=== PATIENT | female | born 1985 | race Caucasian/White ===

== ENCOUNTER 2016-12-09 13:38 | Observation (INO) | payer OTHER ==
[2016-12-09] MEDS ORDERED: MORPHINE SULFATE 4 MG INJ IV ONE (14:01)
[2016-12-09] MEDS ORDERED: Phenergan 25 MG INJ IV ONE (14:01)
[2016-12-09] MEDS ORDERED: Sodium Chloride 0.9% 1000 ML 1,000 ML IV STA (14:01)
--- NOTE | 2016-12-09 14:01 | ERPHSYRPT ---
- History of Present Illness Time Seen by Provider: 12/09/16 13:57 Historian: patient, family Exam Limitations: no limitations Patient Subjective Stated Complaint: co abd pain to right side that radiates across abd with nausea and vomiting today x1, started after breakfast today, has has us and blood work for pain Triage Nursing Assessment: pt alert, resp easy, walked in, abd soft with bs, tender to palpate Physician History: The patient is a 31-year-old female with her complaining of a sudden onset of severe right upper quadrant abdominal pain with radiation across her abdomen. The pain began about one half hour after eating eggs and toast with butter. She has had intermittent pain like this for the past 9 years but in the past several months it has become constant with a flare up from time to time. Today is the worst pain that she has experienced. She also has vomited. The patient had an ultrasound of her gallbladder on November 07 of this year that was found to be negative. Her past medical history is significant for a C- section. Timing/Duration: today, hour(s) (3) Activities at Onset: none Quality: sharpness, stabbing Abdominal Pain Onset Location: RUQ Pain Radiation: LUQ Severity of Pain-Max: severe Severity of Pain-Current: severe Modifying Factors: Improves With: vomiting Associated Symptoms: denies symptoms Previous symptoms: same symptoms as today Allergies/Adverse Reactions: No Known Drug Allergies Allergy (Verified 12/09/16 13:54) Home Medications: No Reportable Medications [No Reported Medications] 10/28/15 [History] Hx Tetanus, Diphtheria Vaccination/Date Given: Yes (2015) Hx Influenza Vaccination/Date Given: Yes Hx Pneumococcal Vaccination/Date Given: No Immunizations Up to Date: Yes - Review of Systems Constitutional: No Fever, No Chills Eyes: No Symptoms Ears, Nose, & Throat: No Symptoms Respiratory: No Cough, No Dyspnea Cardiac: No Chest Pain, No Edema, No Syncope Abdominal/Gastrointestinal: Abdominal Pain, Nausea, Vomiting, No Diarrhea Genitourinary Symptoms: No Dysuria Musculoskeletal: No Back Pain, No Neck Pain Skin: No Rash Neurological: No Dizziness, No Focal Weakness, No Sensory Changes Psychological: No Symptoms Endocrine: No Symptoms Hematologic/Lymphatic: No Symptoms Immunological/Allergic: No Symptoms All Other Systems: Reviewed and Negative - Past Medical History Pertinent Past Medical History: No - Past Surgical History Past Surgical History: Yes Female Surgical History: Section - Social History Smoking Status: Never smoker Exposure to second hand smoke: No Drug Use: none Patient Lives Alone: No - Female History Hx Last Menstrual Period: 12/04/16 - Nursing Vital Signs Nursing Vital Signs: Initial Vital Signs Temperature 97.9 F Temperature Source Oral Pulse Rate 79 Respiratory Rate 16 Blood Pressure [Right Arm] 109/58 Pain Intensity 1 - Physical Exam General Appearance: moderate distress Eye Exam: PERRL/EOMI, eyes nml inspection Ears, Nose, Throat Exam: normal ENT inspection, pharynx normal, moist mucous membranes Neck Exam: normal inspection, non-tender, supple, full range of motion Respiratory Exam: normal breath sounds, lungs clear, No respiratory distress Cardiovascular Exam: regular rate/rhythm, normal heart sounds Gastrointestinal/Abdomen Exam: tenderness Pelvic Exam: not done Rectal Exam: not done Back Exam: normal inspection, normal range of motion, No CVA tenderness, No vertebral tenderness Extremity Exam: normal inspection, normal range of motion, pelvis stable Neurologic Exam: alert, oriented x 3, cooperative, normal mood/affect, nml cerebellar function, sensation nml, No motor deficits Skin Exam: normal color, warm, dry SpO2 Interpretation: normal SpO2: 99 Oxygen Delivery: Room Air - CT Exams Abdomen/Pelvis CT Interpretation: Tele-radiologist Report, Other (No acute process. Possible subtle milk of calcium bile in the GB. Per Dr Gaines.) Ordered Tests: Active Orders 24 hr Category Date Time Status IV Insertion STAT Care 12/09/16 14:01 Active ABDOMEN AND PELVIS W/0 CONTRAS [CT] Stat Exams 12/09/16 15:10 Completed CBC W DIFF Stat Lab 12/09/16 14:00 Completed CMP Stat Lab 12/09/16 14:00 Completed HCG QUALITATIVE,SERUM Stat Lab 12/09/16 14:00 Completed LIPASE Stat Lab 12/09/16 14:00 Completed Lactic Acid Stat Lab 12/09/16 14:37 Completed UA W/RFX UR CULTURE Stat Lab 12/09/16 14:02 Completed Medication Summary Discontinued Medications Generic Name Dose Route Start Last Admin Trade Name Freq PRN Reason Stop Dose Admin Sodium Chloride 1,000 mls @ 999 mls/hr 12/09/16 14:01 12/09/16 14:11 Sodium Chloride 0.9% 1000 Ml IV 12/09/16 15:01 999 mls/hr .Q1H1M STA Administration Sodium Chloride Confirm 12/09/16 14:05 Sodium Chloride 0.9% 1000 Ml Administered 12/09/16 14:06 Dose 1,000 mls @ ud .ROUTE .STK-MED ONE Morphine Sulfate 4 mg 12/09/16 14:01 12/09/16 14:09 Morphine Sulfate 4 Mg Inj IV 12/09/16 14:02 4 mg STAT ONE Administration Morphine Sulfate Confirm 12/09/16 14:05 Morphine Sulfate 4 Mg Inj Administered 12/09/16 14:06 Dose 4 mg .ROUTE .STK-MED ONE Promethazine HCl 12.5 mg 12/09/16 14:01 12/09/16 14:09 Phenergan 25 Mg Inj IV 12/09/16 14:02 25 mg STAT ONE Administration Promethazine HCl Confirm 12/09/16 14:05 Phenergan 25 Mg Inj Administered 12/09/16 14:06 Dose 25 mg .ROUTE .STK-MED ONE Lab/Rad Data: Laboratory Result Diagrams 12/09/16 14:00 12/09/16 14:00 Laboratory Results 12/09/16 12/09/16 12/09/16 Range/Units 14:37 14:02 14:00 WBC (4.0-10.5) K/mm3 RBC (4.1-5.4) M/mm3 Hgb (12.0-16.0) gm/dl Hct (35-47) % MCV (78-100) fl MCH (26-32) pg MCHC (32-36) g/dl RDW (11.5-14.0) % Plt Count (150-450) K/mm3 MPV (6-9.5) fl Gran % (36.0-66.0) % Lymphocytes % (24.0-44.0) % Monocytes % (0.0-12.0) % Eosinophils % (0.00-5.0) % Basophils % (0.0-0.4) % Basophils # (0-0.4) Sodium (136-145) mEq/L Potassium (3.5-5.1) mEq/L Chloride (98-107) mEq/L Carbon Dioxide (21-32) mEq/L Anion Gap (5-15) MEQ/L BUN (9-20) mg/dL Creatinine (0.55-1.30) mg/dl Estimated GFR ML/MIN Glucose (70-110) MG/DL Lactic Acid 1.6 (0.4-2.0) Calcium (8.5-10.1) mg/dL Total Bilirubin (0.2-1.0) mg/dL AST (15-37) U/L ALT (12-78) U/L Alkaline Phosphatase (46-116) U/L Serum Total Protein (6.4-8.2) gm/dL Albumin (3.4-5.0) g/dL Lipase (73-393) U/L Serum , Qual NEGATIVE (Negative) Ur Collection Type CLEAN CATCH Urine Color YELLOW (YELLOW) Urine Appearance CLEAR (CLEAR) Urine pH 7.0 (5-6) Ur Specific [place] 1.005 (1.005-1.025) Urine Protein NEGATIVE (Negative) Urine Ketones NEGATIVE (NEGATIVE) Urine Blood NEGATIVE (0-5) Danny/ul Urine Nitrite NEGATIVE (NEGATIVE) Urine Bilirubin NEGATIVE (NEGATIVE) Urine Urobilinogen NORMAL (0-1) mg/dL Ur Leukocyte Esterase NEGATIVE (NEGATIVE) Urine Glucose NEGATIVE (NEGATIVE) mg/dL Specimen Received 12/09/16 1400 12/09/16 12/09/16 Range/Units 14:00 14:00 WBC 11.5 H (4.0-10.5) K/mm3 RBC 4.90 (4.1-5.4) M/mm3 Hgb 14.4 (12.0-16.0) gm/dl Hct 43.5 (35-47) % MCV 88.8 (78-100) fl MCH 29.4 (26-32) pg MCHC 33.1 (32-36) g/dl RDW 13.3 (11.5-14.0) % Plt Count 189 (150-450) K/mm3 MPV 11.3 H (6-9.5) fl Gran % 80.4 H (36.0-66.0) % Lymphocytes % 10.3 L (24.0-44.0) % Monocytes % 8.8 (0.0-12.0) % Eosinophils % 0.4 (0.00-5.0) % Basophils % 0.1 (0.0-0.4) % Basophils # 0.01 (0-0.4) Sodium 141 (136-145) mEq/L Potassium 3.7 (3.5-5.1) mEq/L Chloride 105 (98-107) mEq/L Carbon Dioxide 27.5 (21-32) mEq/L Anion Gap 12.6 (5-15) MEQ/L BUN 15 (9-20) mg/dL Creatinine 0.79 (0.55-1.30) mg/dl Estimated GFR > 60 ML/MIN Glucose 88 (70-110) MG/DL Lactic Acid (0.4-2.0) Calcium 9.4 (8.5-10.1) mg/dL Total Bilirubin 0.40 (0.2-1.0) mg/dL AST 18 (15-37) U/L ALT 26 (12-78) U/L Alkaline Phosphatase 67 (46-116) U/L Serum Total Protein 8.2 (6.4-8.2) gm/dL Albumin 4.2 (3.4-5.0) g/dL Lipase 112 (73-393) U/L Serum , Qual (Negative) Ur Collection Type Urine Color (YELLOW) Urine Appearance (CLEAR) Urine pH (5-6) Ur Specific [place] (1.005-1.025) Urine Protein (Negative) Urine Ketones (NEGATIVE) Urine Blood (0-5) Danny/ul Urine Nitrite (NEGATIVE) Urine Bilirubin (NEGATIVE) Urine Urobilinogen (0-1) mg/dL Ur Leukocyte Esterase (NEGATIVE) Urine Glucose (NEGATIVE) mg/dL Specimen Received - Progress Progress: improved, pain not gone completely Progress Note: 12/09/16 16:32 After NS 1 L, phenergan 12.5, and MSO4 4 mg IV, pt is feeling better but pain is returning. Discussed pt with Dr Juarez and will admit pt for pain control. Discussed with : Larry Will see patient in: hospital (observation) Counseled pt/family regarding: lab results, diagnosis, rad results - Departure Time of Disposition: 16:48 Departure Disposition: Observation (Per Dr Juarez) Clinical Impression: Abdominal pain Condition: Stable Critical Care Time: No
[2016-12-09] MEDS ORDERED: Phenergan 25 MG INJ ONE (14:05)
[2016-12-09] MEDS ORDERED: Sodium Chloride 0.9% 1000 ML 1,000 ML ONE (14:05)
[2016-12-09] MEDS ORDERED: MORPHINE SULFATE 4 MG INJ ONE (14:05)
[2016-12-09 14:10] LABS: ADD URINE CULTURE? NO (NO); Bilirubin NEGATIVE (NEGATIVE); Blood NEGATIVE Ery/ul (0-5); COMPLETE URINE MICROSCOPIC? NO; Collection Type CLEAN CATCH; Glucose NEGATIVE (NEGATIVE); Leukocyte Esterase NEGATIVE (NEGATIVE)
[2016-12-09 14:11] LABS: BASOPHIL % 0.1 % (0.0-0.4); Eosinophil % 0.4 % (0.00-5.0); Granulocytes % 80.4 % (36.0-66.0); Lymphocytes % 10.3 % (24.0-44.0); Mean Cell Volume 88.8 fl (78-100); Mean Corpuscular Hemoglobin 29.4 pg (26-32); Mean Platelet Volume 11.3 fl (6-9.5); Monocytes % 8.8 % (0.0-12.0); Platelet Count 189 K/mm3 (150-450); Red Cell Distribution Width 13.3 % (11.5-14.0); White Blood Count 11.5 K/mm3 (4.0-10.5)
[2016-12-09 14:36] LABS: ALBUMIN 4.2 g/dL (3.4-5.0); ALKALINE PHOSPHATASE 67 U/L (46-116); ANION GAP 12.6 MEQ/L (5-15); BLOOD UREA NITROGEN 15 mg/dL (9-20); CHLORIDE 105 mEq/L (98-107); Carbon Dioxide 27.5 mEq/L (21-32); Glucose 88 MG/DL (70-110); LIPASE 112 U/L (73-393); Potassium 3.7 mEq/L (3.5-5.1); SGOT/AST 18 U/L (15-37); SGPT/ALT 26 U/L (12-78); SODIUM 141 mEq/L (136-145); Total Protein 8.2 gm/dL (6.4-8.2)
--- NOTE | 2016-12-09 16:23 | XRAY ---
Exam: CT of the abdomen and pelvis without IV contrast from 12/09/2016. CTDI: 13.10 Comparison: None. Indication: Right upper and mid abdominal pain for 9 years, pain has become a lot worse this morning. Technique: Non-IV contrast axial images were obtained through the abdomen and pelvis. Reconstructed coronal and sagittal images were created and reviewed. Findings: The lung bases reveals scant atelectasis at the peripheral posterior lateral margin of the right lung base. This is of doubtful significance. Otherwise, the lung bases appear clear. The heart size is normal. Assessment of the solid organs is mildly limited without IV contrast. The liver is of unremarkable size and appears grossly unremarkable. There is a question of a subtle layering fluid-fluid level within the gallbladder. For example, see axial image #38 at a low window level. The gallbladder ultrasound from 11/07/2016 revealed no evidence of stones and appeared anechoic at that time. This appearance is relatively nonspecific. Consider subtle milk of calcium bile. The gallbladder is not enlarged. I detect no wall thickening, pericholecystic fluid, or intrahepatic or extrahepatic biliary duct distention. The spleen is of normal size. A 1 cm in diameter round low attenuation lesion is seen at the posterior inferior margin of the spleen, best seen on axial image #25. This measures +24 Hounsfield units. This is somewhat high to represent a simple cyst. This might represent a small incidental hemangioma. Abundant food/secretions are seen within the stomach lumen. Visualization of the pancreas is somewhat difficult due to adjacent nonopacified small bowel loops. No definite inflammatory changes are seen to suggest pancreatitis. The adrenal glands appear of normal size and shape. The kidneys are of normal size and reveal no stones or hydronephrosis. No definite renal mass is seen. I see no evidence of abdominal aortic aneurysm or abnormal retroperitoneal lymphadenopathy. No free intraperitoneal air or ventral abdominal wall hernia is seen. The bowel reveals no evidence of distention or obstruction. At least a portion of the appendix is seen within the right lower quadrant and I see no evidence of appendicitis. The uterus is retroflexed, but appears unremarkable. No free fluid or enlarged pelvic lymph nodes are seen. The urinary bladder is distended and appears unremarkable. A mild amount of scattered colonic stool is seen. Some postinflammatory lymph nodes are seen within each groin. Several small calcified phleboliths are seen within the lower pelvis. I see no acute fracture or aggressive bone lesion. Schmorl's nodes are seen affecting the superior vertebral endplate of L3. Impression: 1. No acute process is seen within the abdomen or pelvis. 2. I believe there is a subtle fluid-fluid level within the gallbladder lumen. For example, see axial image #38. Consider subtle milk of calcium bile. No dense calcifications are seen within the gallbladder. 3. 1 cm hypodense lesion at the inferior posterior margin of the spleen. Its attenuation value is a bit high to represent a simple cyst. This might represent a small hemangioma. 4. No renal calculi or hydronephrosis is seen. 5. Unremarkable appendix. 6. Significantly retroflexed uterus tilted slightly to the left of midline.
[2016-12-09] MEDS ORDERED: Morphine PCA 1 MG/ML 30 ML IV PRN (17:56)
[2016-12-09] MEDS: Sodium Chloride 0.9% 1000 ML 1,000 ML IV SCH (18:09)
[2016-12-09] MEDS: Zofran 4 MG/2 ML VIAL IV PRN (18:28)
[2016-12-10] MEDS: Zofran 4 MG/2 ML VIAL IV PRN ×2 (02:18→13:06)
[2016-12-10] MEDS: Sodium Chloride 0.9% 1000 ML 1,000 ML IV SCH (02:21)
[2016-12-10 07:20] LABS: BASOPHIL % 0.2 % (0.0-0.4); Eosinophil % 1.9 % (0.00-5.0); Granulocytes % 44.5 % (36.0-66.0); Lymphocytes % 44.8 % (24.0-44.0); Mean Cell Volume 90.7 fl (78-100); Mean Corpuscular Hemoglobin 29.3 pg (26-32); Monocytes % 8.6 % (0.0-12.0); Platelet Count 153 K/mm3 (150-450); Red Blood Count 3.99 M/mm3 (4.1-5.4); White Blood Count 5.4 K/mm3 (4.0-10.5)
[2016-12-10 07:37] LABS: ANION GAP 12.7 MEQ/L (5-15); BLOOD UREA NITROGEN 15 mg/dL (9-20); CHLORIDE 109 mEq/L (98-107); Carbon Dioxide 24.8 mEq/L (21-32); Glucose 85 MG/DL (70-110); Potassium 3.6 mEq/L (3.5-5.1); SODIUM 143 mEq/L (136-145)
--- NOTE | 2016-12-10 07:48 | PCM.HP ---
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 She has had >6 mo of intermittent RUQ pain, with 3 mo of constant pain and intermittent exacerbations. Pain worse with eating. She had a gallbladder u/s and it was negative. Yesterday she ate and had RUQ pain, "worst pain of my life," 8-10 radiating to R flank and epigastrum. CT abd/pelvis with question of fluid levels in gallbladder. Pt unable to have HIDA scan until . Currently pain is 3/10, she states this is her baseline. - Review of Systems Constitutional: No Weight Loss Abdominal/Gastrointestinal: Abdominal Pain, Vomiting, Diarrhea (x1), Appetite Changes All Other Systems: Reviewed and Negative Medications & Allergies Home Medications: Home Medication List No Reportable Medications [No Reported Medications] 10/28/15 [History Confirmed 12/09/16] Allergies/Adverse Reactions: Allergies Allergy/AdvReac Type Severity Reaction Status Date / Time No Known Drug Allergies Allergy Verified 12/09/16 13:54 - Past Medical History Past Medical History: No - Female History Hx Last Menstrual Period: 12/04/16 Are you now?: No - Past Surgical History Past Surgical History: Yes Female Surgical History: Section Other Surgical History: c section x 2. tooth extraction - Social History Smoking Status: Never smoker Exposure to second hand smoke: No Alcohol: Rarely Drug Use: none - Physical Exam Vital Signs: Vital Signs - 24 hr Temp Pulse Resp BP Pulse Ox 12/10/16 07:09 98.1 F 67 18 86/54 97 12/10/16 04:00 98.1 F 71 19 94/52 97 12/10/16 00:00 98.2 F 65 16 95/47 97 12/09/16 20:05 98.7 F 62 18 100/55 97 12/09/16 18:13 98.8 F 64 16 94/61 97 12/09/16 16:53 99 12/09/16 15:35 79 109/58 97 12/09/16 14:11 91 H 16 115/69 99 12/09/16 13:43 97.9 F 106 H 16 135/86 99 General Appearance: mild distress Neurologic Exam: alert, oriented x 3, cooperative Eye Exam: eyes nml inspection Neck Exam: normal inspection, supple, full range of motion Respiratory Exam: normal breath sounds, lungs clear, No crackles/rales, No rhonchi, No wheezing Cardiovascular Exam: regular rate/rhythm, normal heart sounds, No murmur Gastrointestinal/Abdomen Exam: soft, normal bowel sounds, tenderness (RUQ), guarding, No distention, No mass, No rebound Back Exam: normal inspection, No CVA tenderness Extremity Exam: normal inspection, No pedal edema, No swelling Skin Exam: normal color, warm, dry Results - Labs Lab/Micro Results: Lab Results-Last 24 Hours 12/10/16 12/10/16 Range/Units 05:05 05:05 WBC 5.4 (4.0-10.5) K/mm3 RBC 3.99 L (4.1-5.4) M/mm3 Hgb 11.7 L (12.0-16.0) gm/dl Hct 36.2 (35-47) % MCV 90.7 (78-100) fl MCH 29.3 (26-32) pg MCHC 32.3 (32-36) g/dl RDW 13.0 (11.5-14.0) % Plt Count 153 (150-450) K/mm3 MPV 12.0 H (6-9.5) fl Gran % 44.5 (36.0-66.0) % Lymphocytes % 44.8 H (24.0-44.0) % Monocytes % 8.6 (0.0-12.0) % Eosinophils % 1.9 (0.00-5.0) % Basophils % 0.2 (0.0-0.4) % Basophils # 0.01 (0-0.4) Sodium 143 (136-145) mEq/L Potassium 3.6 (3.5-5.1) mEq/L Chloride 109 H (98-107) mEq/L Carbon Dioxide 24.8 (21-32) mEq/L Anion Gap 12.7 (5-15) MEQ/L BUN 15 (9-20) mg/dL Creatinine 0.76 (0.55-1.30) mg/dl Estimated GFR > 60 ML/MIN Glucose 85 (70-110) MG/DL Calcium 8.3 L (8.5-10.1) mg/dL - Radiology Impressions Radiology Exams & Impressions: Radiology Procedures Category Date Time Status HIDA-GALL BLADDER [NUCMED] Urgent Exams 12/12/16 08:00 Ordered Assessment/Plan (1) Abdominal pain Current Visit: Yes Status: Acute Assessment & Plan: By history and exam, seems likely to have cholecystitis. WBC 11.5 on admission. appendix normal on CT scan. Since it would take another day to get a HIDA scan, will go ahead and consult surgery. Pt is NPO. Code(s): R10.9 - UNSPECIFIED ABDOMINAL PAIN
--- NOTE | 2016-12-10 15:17 | PCM.DS ---
Discharge Summary Date of Admission: 12/09/16 17:46 Admitting Physician: JORDAN NOLAN Consults: Consults on Case 12/10/16 07:42 Consult Surgery ROUTINE Primary Care Provider: JORDAN NOLAN Allergies Allergies No Known Drug Allergies Allergy (Verified 12/09/16 13:54) Hospital Summary - Hospital Course Hospital Course: Pt admitted with RUQ pain, acute on chronic. CT abd/pelvis with no definitive findings. u/S done on December 07 without cholelithiasis. Labs stable. 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 Surgery was consulted and they opted to wait for HIDA vs doing EGD now. Pt would like to get HIDA holley and it is not available at our facility until 48 h from now. Pt wanted to transfer to [facility] for more timely testing. - Vitals & Intake/Output Vital Signs: Vital Signs Temperature 98.2 F 12/10/16 12:00 Pulse Rate 62 12/10/16 12:00 Respiratory Rate 18 12/10/16 12:00 Blood Pressure 89/52 12/10/16 12:00 O2 Sat by Pulse Oximetry 97 12/10/16 12:00 Intake & Output: Intake & Output 12/08/16 12/09/16 12/10/16 12/11/16 11:59 11:59 11:59 11:59 Intake Total 0 Balance 0 Weight 66.587 kg - Lab Result Diagrams: 12/10/16 05:05 12/10/16 05:05 Lab Results-Last 24 Hrs: Lab Results-Last 24 Hours 12/10/16 12/10/16 Range/Units 05:05 05:05 WBC 5.4 (4.0-10.5) K/mm3 RBC 3.99 L (4.1-5.4) M/mm3 Hgb 11.7 L (12.0-16.0) gm/dl Hct 36.2 (35-47) % MCV 90.7 (78-100) fl MCH 29.3 (26-32) pg MCHC 32.3 (32-36) g/dl RDW 13.0 (11.5-14.0) % Plt Count 153 (150-450) K/mm3 MPV 12.0 H (6-9.5) fl Gran % 44.5 (36.0-66.0) % Lymphocytes % 44.8 H (24.0-44.0) % Monocytes % 8.6 (0.0-12.0) % Eosinophils % 1.9 (0.00-5.0) % Basophils % 0.2 (0.0-0.4) % Basophils # 0.01 (0-0.4) Sodium 143 (136-145) mEq/L Potassium 3.6 (3.5-5.1) mEq/L Chloride 109 H (98-107) mEq/L Carbon Dioxide 24.8 (21-32) mEq/L Anion Gap 12.7 (5-15) MEQ/L BUN 15 (9-20) mg/dL Creatinine 0.76 (0.55-1.30) mg/dl Estimated GFR > 60 ML/MIN Glucose 85 (70-110) MG/DL Calcium 8.3 L (8.5-10.1) mg/dL - Radiology Exams Ordered Rad Exams-Entire Visit: Radiology Procedures Category Date Time Status HIDA-GALL BLADDER [NUCMED] Urgent Exams 12/12/16 08:00 Ordered Discharge Exam General Appearance: no apparent distress (examined this morning) Neurologic Exam: alert, oriented x 3, cooperative Skin Exam: normal color, warm, dry Eye Exam: eyes nml inspection Neck Exam: normal inspection Respiratory Exam: normal breath sounds, lungs clear, No wheezing Cardiovascular Exam: regular rate/rhythm, normal heart sounds, No murmur Gastrointestinal/Abdomen Exam: soft, normal bowel sounds, tenderness (RUQ), guarding, No rebound Extremity Exam: No pedal edema, No swelling Back Exam: normal inspection Final Diagnosis/Problem List - Final Discharge Diagnosis/Problem (1) Abdominal pain Current Visit: Yes Status: Acute Assessment & Plan: Clinically suspicious for cholelithiasis, however PUD is on the differential and surgery does not want to proceed without a positive HIDA scan. Pt would like transfer in order to receive the scan quickly. I spoke with Dr. Dunlap at [facility] and he will accept the pt in transfer, thank you. - Discharge Disposition: DC TO [facility] Condition: Stable Prescriptions: No Action No Reportable Medications [No Reported Medications] Follow up with: JORDAN NOLAN MD [Primary Care Provider] -
[2016-12-10 15:57] VITALS: BP 112/62; PULSE 68; O2SAT 98
--- NOTE | 2016-12-11 08:08 | CONS ---
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 She had some right upper quadrant pain over the past three to four months. She had a gallbladder ultrasound in October that was negative ultrasound. She has not had a HIDA scan since then. She did have some vomiting yesterday and worsening pain that is more constant now after eating eggs, toast and butter. PAST SURGICAL HISTORY: section. She denies any upper abdominal surgeries in the past. MEDICATIONS: She said she is not on any medications on a regular basis. ALLERGIES: NKDA. FAMILY HISTORY: Diverticular disease. One of her relatives had a colon resection for diverticular disease. She denies any chronic illnesses. Negative for Crohn's or celiac disease. SOCIAL HISTORY: No smoking or alcohol abuse. LAB DATA AND TESTS: Liver function test, lipase within normal limits. White blood cell count 5.4, hemoglobin 11.7, PLT 153,000. Gallbladder ultrasound was negative from 11/07/2016. CT scan yesterday showed unremarkable appendix hyperdense, question meningioma or cyst in the spleen. No acute process. There is no calcium in the bile but again ultrasound did not show any gallstones. REVIEW OF SYSTEMS: Twelve systems reviewed per admission assessment. No chest pain or palpitations other systems negative or noncontributory as above and per preadmission questionnaire. PHYSICAL EXAMINATION: GENERAL: No acute distress. HEENT: Sclera nonicteric. NECK: No JVD. CHEST: Equal excursion, nonlabored breathing. CVS: Regular rate and rhythm. ABDOMEN: Soft. There is some tenderness in the right upper quadrant. No rebound. EXTREMITIES: No significant edema. NEURO: Alert, moving extremities grossly symmetrically. Palpable pedal pulse. IMPRESSION: Right upper quadrant pain, acute exacerbation of some chronic right upper quadrant pain of unclear etiology. She had a negative gallbladder ultrasound for gallstones. She has not had a HIDA at this time. She did have anything from gastritis, peptic ulcer disease versus biliary dysfunction, chronic cholecystitis, symptomatic dyskinesia. Either way options discussed. As HIDA scan is not available for a couple of days here at this hospital options were discussed to consider proceeding with upper endoscopy to rule out gastritis, ulcer disease or other etiology that might need definitive treatment. Otherwise as she has no gallstones, no report of any wall thickening on ultrasound, I feel she definitely needs HIDA scan, consideration of cholecystectomy. If she did have abnormal HIDA then will proceed with laparoscopic cholecystectomy with possible open, general risk of bleeding or infection, risk of trocar injury or hernia, small risk bowel, bladder or blood vessel injury, small risk of bile leak, bile duct injury, retained stone or sludge possibly requiring further procedure either open or ERCP, general risk of anesthesia, deep venous thrombosis, pulmonary embolism, pneumonia, perioperative risk of aches, pains, bloating, constipation or loose stools possibly chronic in nature, possibility that this procedure may not improve her symptoms that she may need further work up and/or testing, other studies or procedures. She also understands possibility of converting to open procedure. The general risks were explained if her HIDA scan is abnormal. Otherwise if HIDA scan is normal then she would likely benefit from upper endoscopy with general risk of bleeding, infection, risk of bowel injury or perforation, risk of sedation but not limited to. She is not agreeing to upper endoscopy at this point. While dictating this note the staff said she is going to [facility] to get a HIDA sooner than later. I will await the results of the HIDA scan at this time. If abnormal then will proceed with cholecystectomy if she agrees to the above risks but not limited to.
== END 2016-12-10 16:05 | disposition short-term general hospital (02) ==
LOC: ED 13:38 → MED SURG 17:46
PROVIDERS: ADMIT Family Medicine; ATTEND Family Medicine
DX: R10.11 Right upper quadrant pain (principal)
CPT/HCPCS: 36000; 36415; 74176; 80048; 80053; 81002; 83605; 83690; 84703; 85025; 96360; 99285; G0378; J2270; J2405; J2550